=== PATIENT | male | born 1965 | race Two or more races ===

== ENCOUNTER 2017-05-08 14:30 | Outpatient (RCR) | payer OTHER, SELFPAY | END 2017-05-08 23:59 | LOC: PT 14:30 | PROVIDERS: Family Provider Nurse Practitioner Family; Visit Provider Nurse Practitioner Family | DX: M25.511 Pain in right shoulder (principal); M25.512 Pain in left shoulder; M25.552 Pain in left hip | CPT/HCPCS: 97110; 97162 ==

== ENCOUNTER 2017-05-24 13:00 | Outpatient (RCR) | payer OTHER, SELFPAY | END 2017-05-24 15:00 | disposition home or self-care (01) | LOC: OT 13:00 | PROVIDERS: Family Provider Nurse Practitioner Family; Visit Provider Nurse Practitioner Family | DX: M25.512 Pain in left shoulder (principal); M25.511 Pain in right shoulder; M25.551 Pain in right hip; M25.552 Pain in left hip | CPT/HCPCS: 97110; 97163; 97165 ==

== ENCOUNTER → 2018-12-10 07:53 | Outpatient (POV) | payer OTHER, SELFPAY | PROVIDERS: Visit Provider Specialist | DX: M25.541 Pain in joints of right hand (principal) | CPT/HCPCS: 95886; 95908 ==

== ENCOUNTER → 2019-03-04 08:42 | Outpatient (CLI) | payer OTHER, SELFPAY ==
--- NOTE | 2019-03-04 08:50 | MR_ITS ---
PROCEDURE: MR LUMBAR SPINE WO/W CON CLINICAL INDICATION: OTHER INTERVERTEBRAL DISC DEGENERATION, LUMBAR REGION Low back pain, right leg numbness COMPARISON: [facility] CT LUMBAR SPINE W/O CONTRAST from 02/24/2017 Lumbar spine from 12/05/2018 TECHNIQUE: Standard multiplanar multiecho sequences are performed without and with contrast. 3-D MIP and myelographic images are also rendered and reviewed FINDINGS: There is normal alignment. The spinal cord ends at the L1 level. T11-T12: Unremarkable. T12-L1: Unremarkable. L1-L2: Mild right-sided foraminal narrowing from facet hypertrophic change. L2-L3: Degenerate disc disease with bulging disc and endplate hypertrophic change slightly eccentric toward the right with right lateral recess and mild right foraminal narrowing L3-L4: Unremarkable. L4-5: Degenerative disc disease with bulging disc along with moderate to severe facet hypertrophic change. There is severe bilateral lateral recess narrowing moderate right foraminal narrowing and severe left foraminal narrowing. There is transverse narrowing of the canal L5-S1: Mild facet hypertrophic change. No enhancing lesions are evident. There are prominent osteophytes on the left at L1-L2 and L4-L5. IMPRESSION: 1. L1-L2: Mild right-sided foraminal narrowing from facet hypertrophic change. 2. L2-L3: Degenerate disc disease with bulging disc and endplate hypertrophic change eccentric toward the right with right lateral recess and mild right foraminal narrowing. 3. L4-5: Degenerative disc disease with bulging disc along with moderate to severe facet hypertrophic change. There is severe bilateral lateral recess narrowing moderate right foraminal narrowing and severe left foraminal narrowing. There is transverse narrowing of the canal. 4. No extruded herniated disc. No enhancing lesions. Dictated by: Freddie Joy MD 03/06/2019 07:11 Electronically signed by Freddie Joy MD in [facility] 03/06/2019 07:11
--- NOTE | 2019-03-04 10:56 | CT_ITS ---
PROCEDURE: CT ABDOMEN W CON CLINICAL HISTORY: LOW ABD PAIN Mid epigastric pain COMPARISON: No exams were available for comparison TECHNIQUE: 75 mL Optiray 350 Axial images obtained with sagittal and coronal reformats. All CT scans at the facility use one or more dose reduction, viz: automated exposure control, ma/kV adjustment per patient size (including targeted exams where dose is matched to indication, i.e. head), or iterative reconstruction technique. FINDINGS: The lung bases are clear. The liver, gallbladder, spleen, adrenal glands, pancreas, and kidneys have an unremarkable appearance. No intestinal obstruction or free air. The exam does not include the pelvis. The appendix is not visualized. There are degenerative changes of the lumbar spine. No evidence of aortic aneurysm. No adenopathy demonstrated IMPRESSION: No acute finding of the upper abdomen Dictated by: Freddie Joy MD 03/04/2019 16:49 Electronically signed by Freddie Joy MD in [facility] 03/04/2019 16:49
== END ==
PROVIDERS: PCP Nurse Practitioner; Visit Provider Nurse Practitioner
DX: R10.30 Lower abdominal pain, unspecified (principal); M51.36 Other intervertebral disc degeneration, lumbar region
CPT/HCPCS: 72158; 74160; 76376; A9576; Q9967

== ENCOUNTER → 2019-03-11 09:34 | Outpatient (POV) | payer OTHER, SELFPAY ==
[2019-03-11 10:07] VITALS: BP 131/89; PULSE 59; RESP 18; O2SAT 98; BMI 35.4
--- NOTE | 2019-03-12 08:45 | HMH.PMCON ---
Assessment and Plan (1) Degenerative joint disease (DJD) of lumbar spine Current visit: Yes Status: Chronic Category: Medical Code(s): M47.816 - Spondylosis without myelopathy or radiculopathy, lumbar region (2) Lumbar facet arthropathy Current visit: Yes Status: Chronic Category: Medical Code(s): M47.816 - Spondylosis without myelopathy or radiculopathy, lumbar region - Assessment and plan all Dx Assessment and Plan for all problems:: We will plan a medial branch block at L4-L5 L5-S1 bilaterally. I discussed with the patient through the proofer apprentice line that this is going to be a diagnostic test for potential RFA. He understands this. Patient will also be started on diclofenac 75 mg 1 p.o. twice daily. I will follow-up with the patient after his injection and reassess his symptoms at that time he has been instructed to call our office if he has any issues prior to his next appointment. Dr. Arteaga has reviewed this note and agrees with this plan of care. This note was dictated using voice recognition software and may contain errors or omissions HPI - Data of Consult Consult date: 03/11/19 Requesting Physician: Heaven Wall APRN Primary Care Provider: Kiki Flores APRN - Consult Narrative Reason for consult: Back pain History of present illness: Mr. Cates is a 53 year old male who presents today for consultation. Today's exam and discussion was all done through a voice interpretation language line provided by the hospital. Patient states that he has constant low back pain. Is not radiating in nature. Patient states that he had a twisting motion makes it worse. He states that it is constant. He does take Tylenol which is beneficial at times. Patient has tried diclofenac in the past which was helpful for him however he has not continued it. Patient has recent MRI showing facet arthropathy. Patient and I discussed injective therapy he is interested in moving forward with this. He is not on any anticoagulation therapy. Patient is continuing to do daily home stretching program. He rates his pain today a 6 out of 10. CC: Heaven Wall APRN [facility] History I have reviewed the patient's past medical history: Yes *Have you ever received a pneumonia vaccine?: No *Have you received a flu vaccine this season?: No - *Social History Smoking Status: Never smoker Alcohol Intake: former *Occupational Status:: other Housing: house Household Members: significant other *Travel in the last 8 weeks: None Family Hx:: Unable to obtain Review of Systems - Review of Systems ROS General: no recent weight change, no fever, no sleep disturbances Respiratory: no cough, no shortness of air, no recurring pulmonary infections Cardiovascular/Peripheral Vascular: No chest pain, No palpitations, no edema, no shortness of breath. Gastrointestinal: no new onset incontinence, normal bowel movements reported Genitourinary: no new onset incontinence Musculoskeletal: Back pain Psychiatric: normal mood/ affect, Neurological: [denies new onset weakness in extremities], [denies new onset balance issues] Meds Home Medications Medication Instructions Recorded Confirmed Type Ibuprofen [Ibuprofen 400mg 400 mg PO Q6HP PRN #20 tab 12/05/18 Rx Tablet] Tizanidine HCl [Zanaflex] 2 mg PO Q8HP PRN #15 cap 12/05/18 Rx Diclofenac Sodium [Diclofenac 75mg 75 mg PO BID #60 tab 03/11/19 Rx Tab] Allergies Allergy/AdvReac Type Severity Reaction Status Date / Time No Known Allergies Allergy Unverified 04/18/17 14:20 Objective Vital signs: Pulse Resp BP Pulse Ox 59 L 18 131/89 98 03/11/19 10:07 03/11/19 10:07 03/11/19 10:07 03/11/19 10:07 Narrative: Physical Exam General: Alert and oriented x3, no acute distress, pleasant and cooperative, [on room air] Lungs: Resps E/U, Symmetrical chest expansion, Eyes: PERRL Musculoskeletal: Flexion and exte
--- NOTE | 2019-03-12 08:48 | P.CONS_ITS ---
Assessment and Plan (1) Degenerative joint disease (DJD) of lumbar spine Current visit: Yes Status: Chronic Category: Medical Code(s): M47.816 - Spondylosis without myelopathy or radiculopathy, lumbar region (2) Lumbar facet arthropathy Current visit: Yes Status: Chronic Category: Medical Code(s): M47.816 - Spondylosis without myelopathy or radiculopathy, lumbar region - Assessment and plan all Dx Assessment and Plan for all problems:: We will plan a medial branch block at L4-L5 L5-S1 bilaterally. I discussed with the patient through the pressure tank operator line that this is going to be a diagnostic test for potential RFA. He understands this. Patient will also be started on diclofenac 75 mg 1 p.o. twice daily. I will follow-up with the patient after his injection and reassess his symptoms at that time he has been instructed to call our office if he has any issues prior to his next appointment. Dr. Arteaga has reviewed this note and agrees with this plan of care. This note was dictated using voice recognition software and may contain errors or omissions HPI - Data of Consult Consult date: 03/11/19 Requesting Physician: Heaven Wall APRN Primary Care Provider: Kiki Flores APRN - Consult Narrative Reason for consult: Back pain History of present illness: Mr. Cates is a 53 year old male who presents today for consultation. Today's exam and discussion was all done through a voice interpretation language line provided by the hospital. Patient states that he has constant low back pain. Is not radiating in nature. Patient states that he had a twisting motion makes it worse. He states that it is constant. He does take Tylenol which is beneficial at times. Patient has tried diclofenac in the past which was helpful for him however he has not continued it. Patient has recent MRI showing facet arthropathy. Patient and I discussed injective therapy he is interested in moving forward with this. He is not on any anticoagulation therapy. Patient is continuing to do daily home stretching program. He rates his pain today a 6 out of 10. CC: Heaven Wall APRN [facility] History I have reviewed the patient's past medical history: Yes *Have you ever received a pneumonia vaccine?: No *Have you received a flu vaccine this season?: No - *Social History Smoking Status: Never smoker Alcohol Intake: former *Occupational Status:: other Housing: house Household Members: significant other *Travel in the last 8 weeks: None Family Hx:: Unable to obtain Review of Systems - Review of Systems ROS General: no recent weight change, no fever, no sleep disturbances Respiratory: no cough, no shortness of air, no recurring pulmonary infections Cardiovascular/Peripheral Vascular: No chest pain, No palpitations, no edema, no shortness of breath. Gastrointestinal: no new onset incontinence, normal bowel movements reported Genitourinary: no new onset incontinence Musculoskeletal: Back pain Psychiatric: normal mood/ affect, Neurological: [denies new onset weakness in extremities], [denies new onset balance issues] Meds Home Medications Medication Instructions Recorded Confirmed Type Ibuprofen [Ibuprofen 400mg 400 mg PO Q6HP PRN #20 tab 12/05/18 Rx Tablet] Tizanidine HCl [Zanaflex] 2 mg PO Q8HP PRN #15 cap 12/05/18 Rx Diclofenac Sodium [Diclofenac 75mg 75 mg PO BID #60 tab 03/11/19 Rx Tab] All
== END ==
PROVIDERS: PCP Nurse Practitioner; Visit Provider Clinical Nurse Specialist Family Health
DX: M47.816 Spondylosis without myelopathy or radiculopathy, lumbar region (principal)
CPT/HCPCS: 99202

== ENCOUNTER → 2019-05-20 09:06 | Outpatient (POV) | payer SELFPAY ==
[2019-05-20 09:38] VITALS: BP 156/98; PULSE 74; RESP 18; O2SAT 99; BMI 36.4
--- NOTE | 2019-05-20 12:56 | P.CONS_ITS ---
[facility] Pain Management SOAP Note Subjective:: Patient is a 53-year-old male who presents today for follow-up after medial branch block. Patient and I are utilizing interpretive service for this visit. Patient had a medial branch block to which he states he got a few days of minimal relief. He rates his pain a 2 out of 10. Patient states he has low back pain with right leg pain. However he seems to be describing SI joint pain as well. Patient is on Tylenol and states that that is somewhat beneficial. Patient and I discussed adding gabapentin along with a epidural steroid injection. ROS General: no recent weight change, no fever, no sleep disturbances Respiratory: no cough, no shortness of air, no recurring pulmonary infections Cardiovascular/Peripheral Vascular: No chest pain, No palpitations, no edema, no shortness of breath. Gastrointestinal: no new onset incontinence, normal bowel movements reported Genitourinary: no new onset incontinence Musculoskeletal: Back pain, right leg pain Psychiatric: normal mood/ affect Neurological: [denies new onset weakness in extremities], [denies new onset balance issues] Objective:: Physical Exam General: Alert and oriented x3, no acute distress, pleasant and cooperative, [on room air] Lungs: Resps E/U, Symmetrical chest expansion, Eyes: PERRL Musculoskeletal: Flexion and extension of lumbar spine somewhat guarded secondary to pain, deep tendon reflexes normal, strength in upper and lower extremities [5/5], [abnormal gait noted] Neurological: speech clear, district director equal, no gross sensory deficits Assessment:: Degenerative disc disease lumbar spine with lumbar radiculopathy, facet arthropathy Plan:: We will start him on gabapentin 300 mg with history of PT. We will also set him up for an epidural steroid injection and I will follow-up with him after this reassess his symptoms at that time. Dr. Arteaga has reviewed this note and agrees with this plan of care. This note was dictated using voice recognition software and may contain errors or omissions [facility] History I have reviewed the patient's past medical history: Yes Medical History: Reports:: Hyperlipidemia, Hypertension Denies:: Diabetes Mellitus Type 1, Diabetes Mellitus Type 2 *Have you ever received a pneumonia vaccine?: Yes *Have you received a flu vaccine this season?: Yes - *Social History Smoking Status: Never smoker Alcohol Intake: never *Occupational Status:: other Housing: house Household Members: significant other *Travel in the last 8 weeks: None Family Hx:: Unable to obtain
== END ==
PROVIDERS: PCP Nurse Practitioner; Visit Provider Clinical Nurse Specialist Family Health
DX: M51.16 Intervertebral disc disorders with radiculopathy, lumbar region (principal); M54.06 Panniculitis affecting regions of neck and back, lumbar region; E78.5 Hyperlipidemia, unspecified; I10 Essential (primary) hypertension
CPT/HCPCS: 99212

== ENCOUNTER → 2020-06-04 08:29 | Outpatient (POV) | payer OTHER, SELFPAY ==
[2020-06-04 09:27] VITALS: BP 128/65; PULSE 64; RESP 18; TEMP 36.8; O2SAT 99; BMI 40.2
--- NOTE | 2020-06-04 09:27 | XR_ITS ---
PROCEDURE: XR HIP RT 2-3V W/PELVIS CLINICAL INDICATION: Right hip and low back pain COMPARISON: No exams were available for comparison FINDINGS: There is mild spurring along the lateral aspect of the acetabulum on both sides right greater than left with minimal osteoarthritic change the hips . No fracture or dislocation. No lytic or blastic change. IMPRESSION: Mild osteoarthritic change of the hips Dictated by: Freddie Joy MD 06/04/2020 13:16 Freddie Joy MD in [facility] 06/04/2020 13:16
--- NOTE | 2020-06-04 09:27 | XR_ITS ---
PROCEDURE: XR LUMBAR SPINE MIN 4V CLINICAL INDICATION: HIP /BACK PAIN COMPARISON: CR XR LUMBAR SPINE MIN 4V from 12/05/2018 FINDINGS: There are prominent bridging paravertebral osteophytes at from L1-L5 consistent with DISH. These are more prominent compared to 12/05/2018 especially on the right at L1-L2 and L3. There is normal alignment. No acute fracture or dislocation is evident. There is degenerative disc disease from L1-S1 and facet arthritic changes are present at L4-L5 and S1. There is mild sclerosis along the left SI joint superiorly. IMPRESSION: 1. Lumbar spondylosis with multilevel degenerative disc disease. 2. DISH of the lumbar spine which has progressed since the previous exam Dictated by: Freddie Joy MD 06/04/2020 13:14 Freddie Joy MD in [place] 06/04/2020 13:14
--- NOTE | 2020-06-04 12:28 | P.CONS_ITS ---
[facility] Pain Management SOAP Note Subjective:: Patient is a 54-year-old male who presents today for follow-up. Patient rates his pain a 7 out of 10. Patient was seen a year ago last May. He never followed up nor completed his injection regimen. Patient states that he is having more low back and right hip pain. He has no diagnostic imaging. He is not currently on any anti-inflammatory medication. Patient had tried gabapentin at some point however this was longer than a year ago. Patient states it did not help ROS General: no recent weight change, no fever, no sleep disturbances Respiratory: no cough, no shortness of air, no recurring pulmonary infections Cardiovascular/Peripheral Vascular: No chest pain, No palpitations, no edema, no shortness of breath. Gastrointestinal: no new onset incontinence, normal bowel movements reported Genitourinary: no new onset incontinence Musculoskeletal: Back pain, right hip pain Psychiatric: normal mood/ affect, Neurological: [denies new onset weakness in extremities], [denies new onset balance issues] Objective:: Physical Exam General: Alert and oriented x3, no acute distress, pleasant and cooperative, [on room air] Lungs: Resps E/U, Symmetrical chest expansion, Eyes: PERRL Musculoskeletal: Flexion and extension of lumbar spine somewhat guarded secondary to pain, deep tendon reflexes normal, strength in upper and lower extremities [5/5], [abnormal gait noted] Neurological: speech clear, database support equal, no gross sensory deficits Assessment:: Degenerative disc disease lumbar spine lumbar radiculopathy, right hip pain Plan:: We will send the patient for x-rays to determine pathology of pain. We will start him on Celebrex 200 mg 1 p.o. daily. I will follow-up with him in 1 month reassess his symptoms at that time due to insurance network issues at this time we can move forward with injective therapy. Patient's been instructed to call the office if he has any issues prior to his next appointment. Dr. Arteaga has reviewed this note and agrees with this plan of care. This note was dictated using voice recognition software and may contain errors or omissions [facility] History I have reviewed the patient's past medical history: Yes Medical History: Reports:: Hyperlipidemia, Hypertension Denies:: Diabetes Mellitus Type 1, Diabetes Mellitus Type 2 *Have you ever received a pneumonia vaccine?: No *Have you received a flu vaccine this season?: No - *Social History Smoking Status: Never smoker Alcohol Intake: never *Occupational Status:: other Housing: house Household Members: significant other *Travel in the last 8 weeks: None Family Hx:: Unable to obtain
== END ==
PROVIDERS: PCP Nurse Practitioner; Visit Provider Clinical Nurse Specialist Family Health
DX: M51.16 Intervertebral disc disorders with radiculopathy, lumbar region (principal); M25.551 Pain in right hip
CPT/HCPCS: 72110; 73502; 99212; G0463

== ENCOUNTER → 2020-07-02 08:29 | Outpatient (POV) | payer OTHER, SELFPAY ==
[2020-07-02 09:49] VITALS: BP 153/97; PULSE 70; RESP 18; O2SAT 98; BMI 32.9
--- NOTE | 2020-07-02 10:07 | P.CONS_ITS ---
[facility] Pain Management SOAP Note Subjective:: Patient is a 54-year-old male who presents today for follow-up and for medication refills. He has been treated for degenerative disc disease lumbar spine with lumbar radiculopathy symptoms and right hip pain. Patient rates his pain an 8 out of 10 today. He says he only got about 30 to 40% relief with the Celebrex. He has tried muscle relaxers and anti-inflammatories in the past with no relief. He wants to have injective therapy, however, he is not approved by his insurance at this time. We discussed other options such as physical therapy and home stretching. We also discussed possible compounding cream, however, he does not want this at this time. He would like to increase his dose of his Celebrex. Patient says once his insurance is approved per the clinic he would like to proceed with injective therapy. Patient's pain is worse with standing and walking him improves with sitting. Review of Systems General: No recent weight changes, no fever, no sleep disturbances Respiratory: No cough, no shortness of air, no recurring pulmonary infections Cardiovascular/peripheral vascular: No chest pain, no palpitations, no edema, no shortness of breath Gastrointestinal: No new onset incontinence, normal bowel movements reported Genitourinary: No new onset incontinence Musculoskeletal: Low back pain and right hip pain Psychiatric: Normal mood/affect Neurological: [Denies weakness in extremities], [denies balance issues] Objective:: Physical exam General: Alert and oriented x3, no acute distress, pleasant and cooperative, [on room air] Lungs: Respirations even and unlabored, symmetrical chest expansion Eyes: PERRL Musculoskeletal: Flexion and extension of lumbar spine somewhat guarded secondary to pain, deep tendon reflexes normal, strength in upper and lower extremities [5/5], [abnormal gait noted] Neurological: Speech clear, maint mechanic equal, no gross sensory deficit Assessment:: Degenerative disc disease lumbar spine with lumbar radiculopathy symptoms, right hip pain Plan:: We will increase the patient's Celebrex today to 200 g 1 tablet p.o. 2 times daily. We will see him back in a month and reevaluate his symptoms at that time. We cannot proceed with injective therapy until he is approved by his insurance. He has been instructed to contact clinic if he has any concerns for his next appointment. The patient and I specifically discussed risk factors for COVID19. These risks include, but are not limited to age greater than 60, heart or lung disease, diabetes, immunosuppression, and travel. We also discussed NSAIDs may worsen COVID19 infection or symptoms. Patient should not use NSAIDs to treat COVID19 signs or symptoms. Patient was also informed that any type of corticosteroid of any form (oral or injection) will decrease the patient's immune system response and may increase the likelihood of COVID19 infection and symptoms. [facility] History I have reviewed the patient's past medical history: Yes Medical History: Reports:: Hyperlipidemia, Hypertension Denies:: Diabetes Mellitus Type 1, Diabetes Mellitus Type 2 *Have you ever received a pneumonia vaccine?: Yes *Have you received a flu vaccine this season?: Yes - *Social History Smoking Status: Never smoker Alcohol Intake: never *Occupational Status:: other Housing: house Household Members: significant other *Travel in the last 8 weeks: None Family Hx:: Unable to obtain
== END ==
PROVIDERS: PCP Nurse Practitioner; Visit Provider Clinical Nurse Specialist Family Health
DX: M51.16 Intervertebral disc disorders with radiculopathy, lumbar region (principal); M25.551 Pain in right hip
CPT/HCPCS: 99212; G0463

== ENCOUNTER → 2020-08-06 09:29 | Outpatient (POV) | payer OTHER, SELFPAY ==
[2020-08-06 09:51] VITALS: BP 112/88; PULSE 74; RESP 18; O2SAT 98; BMI 36.2
--- NOTE | 2020-08-06 10:07 | HMH.PAINSOAP ---
[facility] Pain Management SOAP Note Subjective:: Patient is 54-year-old male who presents today for follow-up medication refills. Patient is being treated for degenerative disc disease lumbar spine lumbar radiculopathy. He rates his pain a 9 out of 10. Patient has been on Celebrex. Patient wants to discuss changing medications. We will start him on Mobic 15 mg a day. Patient has had injection therapy in the past and would like to continue with this. Patient's pain is in his back radiating down his legs. We discussed lumbar epidural steroid injection. We will move forward with this is not on any anticoagulation therapy. ROS General: no recent weight change, no fever, no sleep disturbances Respiratory: no cough, no shortness of air, no recurring pulmonary infections Cardiovascular/Peripheral Vascular: No chest pain, No palpitations, no edema, no shortness of breath. Gastrointestinal: no new onset incontinence, normal bowel movements reported Genitourinary: no new onset incontinence Musculoskeletal: Back pain, leg pain Psychiatric: normal mood/ affect Neurological: [denies new onset weakness in extremities], [denies new onset balance issues] Objective:: Physical Exam General: Alert and oriented x3, no acute distress, pleasant and cooperative, [on room air] Lungs: Resps E/U, Symmetrical chest expansion, Eyes: PERRL Musculoskeletal: Flexion and extension of lumbar spine somewhat guarded secondary to pain, deep tendon reflexes normal, strength in upper and lower extremities [5/5], [abnormal gait noted] Neurological: speech clear, can pusher equal, no gross sensory deficits Assessment:: Degenerative disc disease lumbar spine lumbar radiculopathy Plan:: We will start the patient on Mobic 15 mg daily. Patient will be set up for an L4-L5 lumbar epidural steroid injection I will follow-up with him afterwards reassess his symptoms at that time he has been instructed to call the office if he has any issues prior to his next appointment. Dr. Arteaga has reviewed this note and agrees with this plan of care. This note was dictated using voice recognition software and may contain errors or omissions [facility] History I have reviewed the patient's past medical history: Yes Medical History: Reports:: Hyperlipidemia, Hypertension Denies:: Diabetes Mellitus Type 1, Diabetes Mellitus Type 2 *Have you ever received a pneumonia vaccine?: Yes *Have you received a flu vaccine this season?: Yes - *Social History Smoking Status: Never smoker Alcohol Intake: never *Occupational Status:: employed Housing: house Household Members: significant other *Travel in the last 8 weeks: None Family Hx:: Unable to obtain
== END ==
PROVIDERS: Visit Provider Clinical Nurse Specialist Family Health
DX: M51.16 Intervertebral disc disorders with radiculopathy, lumbar region (principal)
CPT/HCPCS: 99212; G0463

== ENCOUNTER 2020-08-14 10:04 | Day surgery (SDC) | payer OTHER, SELFPAY ==
[2020-08-14 10:07] VITALS: BP 132/87; BP 169/103; PULSE 60; PULSE 84; RESP 18; TEMP 36; O2SAT 100; O2SAT 98; BMI 36.2
[2020-08-14 10:32] VITALS: BP 128/89; PULSE 78; RESP 18; O2SAT 98
[2020-08-14 10:43] VITALS: BP 166/85; PULSE 55; RESP 20; O2SAT 100
--- NOTE | 2020-08-14 10:52 | HMH.PMPROC ---
- Procedure Date: 08/14/20 Time: 10:52 Anesthesiologist:: Luis M Arteaga MD Complications:: None Pre-procedure Diagnosis:: Degenerative disc disease of lumbar spine with lumbar radiculopathy symptoms Post-procedure Diagnosis:: Same Indications for Procedure:: This patient is a pleasant 54-year-old male who we are treating for low back pain with lumbar radiculopathy symptoms. He has increasing pain in his back rating down his legs. Will do lumbar epidural steroid injection today to see if this helps him with his pain symptoms. Procedure Details:: Lumbar epidural steroid injection under fluoroscopy Informed consent was obtained and the risk and benefits of the procedure was explained to the patient. The patient was taken to the procedure room. The patient was placed prone on the procedure table. The patient was prepped and draped in sterile fashion. C-arm fluoroscopy was used to view the lumbar spine. Skin and subcutaneous tissues were anesthetized using lidocaine. I placed an 18-gauge epidural needle and advanced into the L4-L5 interspace using fluoroscopic guidance and [id number] to air. After confirmation of needle placement in the epidural space with dye I injected 2 mL of lidocaine 1.5% with Depo-Medrol 80 mg. Patient tolerated the procedure well with no complications. Plan and Disposition:: We will follow-up with him in 2 weeks. Will reevaluate symptoms at that time.
== END 2020-08-14 10:44 | disposition home or self-care (01) ==
LOC: SC.PAINP 10:05
PROVIDERS: PCP Nurse Practitioner; Visit Provider Anesthesiology
DX: M51.16 Intervertebral disc disorders with radiculopathy, lumbar region (principal); I10 Essential (primary) hypertension; E78.5 Hyperlipidemia, unspecified; K21.9 Gastro-esophageal reflux disease without esophagitis; F41.9 Anxiety disorder, unspecified; F32.9 Major depressive disorder, single episode, unspecified
CPT/HCPCS: 62323; J1040; Q9966

== ENCOUNTER → 2020-09-17 10:59 | Outpatient (POV) | payer OTHER, SELFPAY ==
[2020-09-17 11:14] VITALS: BP 138/85; PULSE 74; RESP 18; O2SAT 98; BMI 36.2
--- NOTE | 2020-09-17 11:42 | P.CONS_ITS ---
[facility] Pain Management SOAP Note Subjective:: Patient is a pleasant 54-year-old man who presents today for follow-up after lumbar epidural steroid injection. Patient did not get any relief from his injection therapy he rates his pain a 6 out of 10 mostly in his low back. Has not had any updated imaging. He is failed 6 weeks of anti-inflammatories. We discussed adding gabapentin to his regimen along with updating his MRI. He may need a neurosurgical consultation. ROS General: no recent weight change, no fever, no sleep disturbances Respiratory: no cough, no shortness of air, no recurring pulmonary infections Cardiovascular/Peripheral Vascular: No chest pain, No palpitations, no edema, no shortness of breath. Gastrointestinal: no new onset incontinence, normal bowel movements reported Genitourinary: no new onset incontinence Musculoskeletal: Back pain Psychiatric: normal mood/ affect Neurological: [denies new onset weakness in extremities], [denies new onset balance issues] Objective:: Physical Exam General: Alert and oriented x3, no acute distress, pleasant and cooperative, [on room air] Lungs: Resps E/U, Symmetrical chest expansion, Eyes: PERRL Musculoskeletal: Flexion and extension of lumbar spine somewhat guarded secondary to pain, deep tendon reflexes normal, strength in upper and lower extremities [5/5], [abnormal gait noted] Neurological: speech clear, 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 He may need a neurosurgical consultation we will give him gabapentin 100 mg 1 p.o. 3 times daily see if this is beneficial for him. He has been instructed to call the office if he has any issues prior to his next appointment. Dr. Arteaga has reviewed this note and agrees with this plan of care. This note was dictated using voice recognition software and may contain errors or omissions [facility] History I have reviewed the patient's past medical history: Yes Medical History: Reports:: Hyperlipidemia, Hypertension Denies:: Cancer, Diabetes Mellitus Type 1, Diabetes Mellitus Type 2, Internal Pacemaker, MRSA, Seizures *Have you ever received a pneumonia vaccine?: Yes *Have you received a flu vaccine this season?: Yes Other Medical History: Denies: Blood Transfusion Reaction Other Surgeries: Yes: No Previous Surgery. No: Pacemaker Amputation: No Fractures: No - *Social History Smoking Status: Never smoker Alcohol Intake: never *Occupational Status:: other Housing: house Household Members: significant other *Travel in the last 8 weeks: None Family Hx:: No significant family history
== END ==
PROVIDERS: Visit Provider Clinical Nurse Specialist Family Health
DX: M51.16 Intervertebral disc disorders with radiculopathy, lumbar region (principal)
CPT/HCPCS: 99212; G0463

== ENCOUNTER → 2020-09-19 07:20 | Outpatient (CLI) | payer OTHER, SELFPAY | PROVIDERS: Visit Provider Internal Medicine Gastroenterology | DX: Z01.812 Encounter for preprocedural laboratory examination (principal); Z11.52 Encounter for screening for COVID-19; Z13.810 Encounter for screening for upper gastrointestinal disorder; Z12.11 Encounter for screening for malignant neoplasm of colon | CPT/HCPCS: U0003 ==

== ENCOUNTER 2020-09-21 11:12 | Day surgery (SDC) | payer OTHER, SELFPAY ==
[2020-09-15 12:49] VITALS: BMI 35.5
[2020-09-21 12:52] VITALS: BP 134/58; PULSE 68; RESP 18; TEMP 36.6; O2SAT 99
--- NOTE | 2020-09-21 12:59 | P.PN_ITS ---
[facility] Anesthesia Checklist - Patient Identification Patient Identification: Arm Band - Structural Data Admitted From: Home Planned Operative Procedure/s: EGD/ Colonoscopy Consent for Planned Operative Procedure(s) Verified: Yes - NPO Status Verified Time NPO: 00:00 - Additional verifications Anesthesia Reactions: No Hx Blood Transfusions: No Blood Transfusion Reaction: No - Airway Assessment C-Spine Mobility Assessed: Yes TMJ Mobility Assessed: Yes Dentition: Good Dentition (Caps) - Neurological Assessment Level of Consciousness: Awake Hx Seizures: Yes Numbness or tingling in extremities: No - Anesthesia Plan Anesthesia Risk discussed: Yes Anesthesia Plan: Verified ASA Class: II Anesthesia Type: MAC [facility] History I have reviewed the patient's past medical history: Yes Medical History: Reports:: Hyperlipidemia, Hypertension, Seizures Denies:: Cancer, Diabetes Mellitus Type 1, Diabetes Mellitus Type 2, Internal Pacemaker, MRSA *Have you ever received a pneumonia vaccine?: Yes *Have you received a flu vaccine this season?: Yes Other Medical History: Reports: Other (Parkinson's). Denies: Blood Transfusion Reaction Anesthesia experience/problems:: None Other Surgeries: Yes: No Previous Surgery. No: Pacemaker Amputation: No Fractures: No - *Social History Last grade of school completed: High school graduate Smoking Status: Never smoker Alcohol Intake: never Substance Use Type: denies use *Occupational Status:: other Housing: house Household Members: significant other *Travel in the last 8 weeks: None Family Hx:: No significant family history
--- NOTE | 2020-09-21 13:09 | SUR.PREOP ---
Detention Deputy on IPad used during the check-in process.
[2020-09-21 13:40] VITALS: O2SAT 98
--- NOTE | 2020-09-21 13:43 | P.PCN_ITS ---
[facility] Procedure Note Procedure Note:: Upper Endoscopy Procedure Report: Esophagogastroduodenoscopy with cold biopsies Endoscopost: Sahil Mccullough II, MD Referring Physician: JAJA Vitale Date of Procedure: September 21, 2020 Equipment: Olympus GIF 190 standard upper endoscope Sedation: MAC sedation Indications: Mr. Cates is a 54-year-old gentleman with symptoms of dyspepsia which have worsened. He reports epigastric abdominal discomfort, bloating, belching, nausea and regurgitation. He does report significant postprandial bloating which may result in some shortness of breath. He reports no weight loss or melena. He does report chronic constipation/obstipation with incomplete defecation. This is his first EGD which is performed for diagnostic purposes. Procedure: Prior to the procedure, a history and physical exam was performed, and patient's medications and allergies were reviewed. The risks, benefits and alternatives of the sedation and procedure were discussed with the patient. All questions were answered and informed consent was obtained. The patient was brought to the procedure room. Patient identification and proposed procedure were verified by the physician and the nurse. The patient was placed in a left lateral decubitus position and the scope was passed under direct vision. Throughout the proc edure, the patient's blood pressure, pulse, and oxygen saturations were monitored continuously. The upper GI endoscopy was accomplished without difficulty. The patient tolerated the procedure well. Findings: The scope was passed directly into the upper esophagus and advanced to the third portion of the duodenum. The post bulbar duodenum and duodenal bulb were normal with normal mucosa and conniventes. The scope was withdrawn through a normal duodenal bulb and pylorus into the stomach. There was bile reflux with some linear reactive gastropathy of the antrum and mild chronic gastritis of the body and fundus of the stomach. Upon retroflexion there was no significant hiatal hernia. 2 biopsies were taken in the antrum and along the lesser curvature for histology to rule out gastritis and/or H pylori. The scope was then withdrawn into the esophagus. There was a serrated Z-line and evidence of nonerosive GERD. There was no evidence of reflux esophagitis, Jovel's or Schatzki's ring. There were some tertiary contractions and mild dysmotility. The remainder of the esophageal mucosa was normal. Impression: 1. Nonerosive GERD with mild esophageal dysmotility 2. Bile reflux with linear reactive gastropathy and mild chronic gastritis Plan: I will follow-up the biopsies to rule out H. pylori. 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 This is caused by his obstipation/incomplete defecation with colonic fermentation and gas formation. There is a gas pressure gradient driving the backflow and duodenal bile reflux. I will discussed dietary measures, fiber bowel regimen and treatment options. I will proceed with diagnostic colonoscopy.
--- NOTE | 2020-09-21 14:03 | P.PCN_ITS ---
[facility] Procedure Note Procedure Note:: Colonoscopy Procedure Report: Colonoscopy with cold snare polypectomy Endoscopist: Sahil Mccullough II, MD Referring physician: JAJA Vitale Date of Procedure: September 21, 2020 Equipment: Olympus 190 variable stiffness pediatric colonoscope Sedation: MAC sedation Indication: Mr. Cates is a 54-year-old gentleman with chronic constipation/obstipation, bloating and dyspepsia. This is his first colonoscopy. He reports no rectal bleeding, weight loss or family history of colon cancer. He does report incomplete defecation. Procedure: Prior to the procedure, a history and physical exam was performed, and patient's medications and allergies were reviewed. The risks, benefits and alternatives of the sedation and procedure were discussed with the patient. All questions were answered and informed consent was obtained. The patient was brought to the procedure room. Patient identification and proposed procedure were verified by the physician and the nurse. The patient was placed in a left lateral decubitus position and the scope was passed under direct vision. Throughout the procedu re, the patient's blood pressure, pulse, and oxygen saturations were monitored continuously. The colonoscopy was accomplished without difficulty. The patient tolerated the procedure well. Findings: On digital rectal examination there was normal rectal tone. There were no external hemorrhoids. The prostate was 2+, mildly firm but symmetric without nodules. The colonoscope was introduced through the anal canal to the rectum and advanced to the cecum. The ileocecal valve and appendiceal orifice were identified. The scope was advanced a short distance into the ileum which appeared grossly normal. The scope was then withdrawn into the colon. There were 2 colon polyps (cecum x1 (4 mm) and transverse x1 (4 mm)) which were both removed via cold snare polypectomy. There were scattered diverticuli throughout the colon. The remainder of the colonic mucosa was normal. The rectum itself was normal. Upon retroflexion within the rectum there were grade 2 internal hemorrhoids. The preparation was excellent throughout with [place] Preparation Score of 9. The cecal time was 12 minutes. Impression: 1. Colonic polyps x2 2. Pandiverticulosis 3. Grade 2 internal hemorrhoids Plan: I do feel that the patient has obstipation with incomplete bowel evacuation causing colonic fecal retention with excessive colonic bacterial overgrowth with fermentation/gas formation and dyspepsia. We will discuss dietary measures, fiber bowel regimen and treatment options. I will follow up the polyp histology. If the polyps are adenomatous, I would recommend repeat screening/surveillance colonoscopy again in 7 years.
[2020-09-21 14:05] VITALS: BP 117/79; PULSE 72; RESP 12; TEMP 36.2; O2SAT 92
[2020-09-21 14:15] VITALS: BP 117/78; PULSE 69; RESP 16; O2SAT 98
[2020-09-21 14:25] VITALS: BP 127/85; PULSE 70; RESP 16; O2SAT 98
[2020-09-21 14:35] VITALS: BP 148/81; PULSE 65; RESP 16; TEMP 36.2; O2SAT 98
== END 2020-09-21 14:59 | disposition home or self-care (01) ==
LOC: OUTP 11:13
PROVIDERS: PCP Nurse Practitioner; Visit Provider Internal Medicine Gastroenterology
PROC: 0DJ08ZZ Inspection of Upper Intestinal Tract, Via Natural or Artificial Opening Endoscopic (ICD-10-PCS; CPT 43235; principal; 2020-09-21 13:00)
DX: K63.5 Polyp of colon (principal); K57.30 Diverticulosis of large intestine without perforation or abscess without bleeding; K64.1 Second degree hemorrhoids; K21.9 Gastro-esophageal reflux disease without esophagitis; K22.4 Dyskinesia of esophagus; K31.9 Disease of stomach and duodenum, unspecified; K29.50 Unspecified chronic gastritis without bleeding; E78.5 Hyperlipidemia, unspecified; I10 Essential (primary) hypertension; R56.9 Unspecified convulsions; G20 Parkinson's disease; Z79.899 Other long term (current) drug therapy
CPT/HCPCS: 43239; 45385

== ENCOUNTER → 2020-09-25 13:47 | Outpatient (CLI) | payer OTHER, SELFPAY ==
--- NOTE | 2020-09-25 13:52 | MR_ITS ---
PROCEDURE INFORMATION: Exam: MR Lumbar Spine Without Contrast Exam date and time: 09/25/2020 1:52 PM Age: 54 years old Clinical indication: Low back pain and sciatica; Right; Patient HX: PT C/O chronic lbp and RT leg pain. PT denies injury or trauma and has no HX of lumbar surgery. Prior nr lumbar spine 03/14/2019; Additional info: Lbp with RT leg pain TECHNIQUE: Imaging protocol: Multiplanar magnetic resonance images of the lumbar spine without intravenous contrast. COMPARISON: MR LUMBAR SPINE WO/W CON 03/04/2019 9:35 AM FINDINGS: Vertebrae: Unremarkable. Spinal cord: Normal signal. No cord compression. There is loss of disc height and signal at the T11-T12 level without evidence of focal disc protrusion or extrusion. At the T12-L1 level is loss of disc height and signal with a mild diffuse disc bulge but no significant spinal or neural foraminal stenosis. Mild facet joint arthropathy. L1-L2: There is loss of disc height and signal with a mild disc bulge and moderate facet joint arthropathy articularly on the right. This causes mild to moderate right neural foraminal stenosis but no significant spinal or left neural foraminal stenosis is seen. . L2-L3: There is severe loss of disc height and signal with a mild diffuse disc bulge which extends into the neural foramen bilaterally.. In addition there is bilateral facet joint arthropathy and mild ligamentous hypertrophy combination of these changes causes mild to moderate left neural foraminal stenosis and moderate to severe right neural foraminal stenosis and minimal spinal stenosis. L3-L4: There is a minimal disc bulge seen in the left neural foramen with moderate bilateral facet joint arthropathy. Combination of these changes causes mild bilateral neural foraminal stenosis. L4-L5: There is loss of disc height and signal with a mild diffuse disc bulge. Bilateral severe facet joint arthropathy is seen with associated ligamentous hypertrophy. The combination of these changes causes severe bilateral neural foraminal stenosis and spinal stenosis. . L5-S1: There is loss of disc height and signal with a mild diffuse disc bulge and moderate bilateral facet joint arthropathy. Mild associated spinal and neural foraminal stenosis is seen. The left neural foramen is moderately stenosis secondary to a combination of a neural foraminal bulge and facet joint changes. . Soft tissues: Unremarkable. IMPRESSION: Multilevel degenerative changes as discussed above which are relatively stable when compared to the prior examination of 03/04/2019.
== END ==
PROVIDERS: PCP Nurse Practitioner; Visit Provider Clinical Nurse Specialist Family Health
DX: M54.5 Low back pain (principal)
CPT/HCPCS: 72148; 76376

== ENCOUNTER → 2020-10-01 13:08 | Outpatient (POV) | payer OTHER, SELFPAY ==
[2020-10-01 13:17] VITALS: BP 153/88; PULSE 69; RESP 18; O2SAT 99; BMI 36.6
--- NOTE | 2020-10-01 14:52 | HMH.PAINSOAP ---
[facility] Pain Management SOAP Note Subjective:: Patient is a 54-year-old male who presents today for follow-up after an MRI. He is accompanied by his girlfriend and an linen supervisor was used for the visit today. The patient has tried injective therapy with no significant relief. He did undergo an MRI that is consistent with his symptoms of spinal stenosis and neurogenic claudication type symptoms. He also has severe facet arthropathy according to the MRI report. Patient says his pain is worse when he is standing and walking. He also reports that leaning forward causes him to have worsening pain. The pain radiates into his bilateral hips and to his knees. He does not have any paresthesia to bilateral lower extremities, however. He rates his pain an 8 out of 10 today. Given the patient's symptomology and MRI report, we did discuss a neurosurgical referral. If he is not considered a surgical candidate, he would likely be a candidate for spinal cord stimulation versus intrathecal therapy. Review of Systems General: No recent weight changes, no fever, no sleep disturbances Respiratory: No cough, no shortness of air, no recurring pulmonary infections Cardiovascular/peripheral vascular: No chest pain, no palpitations, no edema, no shortness of breath Gastrointestinal: No new onset incontinence, normal bowel movements reported Genitourinary: No new onset incontinence Musculoskeletal: Low back pain, bilateral hip pain, bilateral knee pain Psychiatric: Normal mood/affect Neurological: [Denies weakness in extremities], [denies balance issues] Objective:: Physical exam General: Alert and oriented x3, no acute distress, pleasant and cooperative, [on room air] Lungs: Respirations even and unlabored, symmetrical chest expansion Eyes: PERRL Musculoskeletal: Flexion and extension of lumbar spine somewhat guarded secondary to pain, deep tendon reflexes normal, strength in upper and lower extremities [4/5], [abnormal gait noted] Neurological: Speech clear, 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 If he is not considered a surgical candidate, he would likely benefit from intrathecal therapy versus spinal cord stimulation. He has tried injective therapy with no relief. He is currently taking diclofenac with no relief. He has also tried physical therapy for greater than 6 weeks and continues with home stretching. We will see him back in the clinic after his neurosurgical consult to reevaluate his symptoms. He has been instructed to contact the clinic if he has any concerns before his next appointment. Patient has been instructed to contact the clinic with any concerns before the next appointment. Dr. Arteaga has reviewed this note and agrees with this plan of care. This note was dictated using voice recognition software and make contain errors or omissions. [facility] History I have reviewed the patient's past medical history: Yes Medical History: Reports:: Hyperlipidemia, Hypertension, Seizures Denies:: Cancer, Diabetes Mellitus Type 1, Diabetes Mellitus Type 2, Internal Pacemaker, MRSA *Have you ever received a pneumonia vaccine?: No *Have you received a flu vaccine this season?: No Other Medical History: Reports: Other (Parkinson's). Denies: Blood Transfusion Reaction Other Surgeries: Yes: No Previous Surgery. No: Pacemaker Amputation: No Fractures: No - *Social History Smoking Status: Never smoker Alcohol Intake: never Substance Use Type: denies use *Occupational Status:: unemployed Housing: house Household Members: significant other *Travel in the last 8 weeks: None Family Hx:: No significant family history
== END ==
PROVIDERS: Visit Provider Clinical Nurse Specialist Family Health
DX: M51.16 Intervertebral disc disorders with radiculopathy, lumbar region (principal); M48.062 Spinal stenosis, lumbar region with neurogenic claudication
CPT/HCPCS: 99212; G0463

== ENCOUNTER 2020-10-20 07:35 | Emergency (ER) | payer OTHER, SELFPAY ==
[2020-10-20 07:36] VITALS: BP 171/94; PULSE 68; RESP 16; TEMP 37; O2SAT 98; BMI 36.2
[2020-10-20 08:01] LABS: Microscopic, Urine URINE MICROSCOPIC (MICROSCOPIC)
--- NOTE | 2020-10-20 08:04 | CT_ITS ---
PROCEDURE: CT ABDOMEN PELVIS W CON CLINICAL INDICATION: ABD PAIN Severe abdominal pain periumbilical with constipation COMPARISON: CT CT ABDOMEN W CON from 03/04/2019 TECHNIQUE: IV Contrast: 75ML Isovue 370 Oral Contrast None Axial images obtained with sagittal and coronal reformats. All CT scans at the facility use one or more dose reduction, viz: automated exposure control, ma/kV adjustment per patient size (including targeted exams where dose is matched to indication, i.e. head), or iterative reconstruction technique. FINDINGS: LOWER THORAX: No acute finding ABDOMEN & PELVIS: Liver, gallbladder, spleen, adrenal glands, pancreas, and kidneys have an unremarkable appearance. No renal or ureteral calculi. No hydronephrosis. The gastric wall appears somewhat thickened but could be related to nondistention. No intestinal obstruction or free air. There is no significant colonic feces retention. No evidence of appendicitis. No evidence of diverticulitis. There is a tiny umbilical hernia containing fat. No abnormal fluid collections degenerative changes present in the lumbar spine. IMPRESSION: No definite acute finding. There is thickening of the gastric wall but could be related to nondistention. Please correlate with clinical parameters regarding possibility of gastritis. Dictated by: Freddie Joy MD 10/20/2020 09:05 Freddie Joy MD in [place] 10/20/2020 09:05
[2020-10-20 08:06] LABS: Appearance,Urine CLEAR (Clear); Bilirubin,Urine Negative (Negative); Blood, Urine Negative (Negative); Color,Urine YELLOW (Yellow); Glucose,Urine (UA) Negative (Negative); Ketones,Urine Negative (Negative); Leukocyte Esterase,Urine Negative (Negative); Nitrate,Urine Negative (Negative); Protein,Urine Negative (Negative); Urobilinogen,Urine 0.2 EU/dl (0.2)
[2020-10-20 08:10] LABS: Basophils % 0.4 % (0.1-2.0); Eosinophils # 0.1 K/mm3 (0.0-0.4); Eosinophils % 1.5 % (0.1-12.0); Hematocrit 45.9 % (42.0-52.0); Hemoglobin 15.5 g/dL (14.1-18.0); Lymphocytes # 1.9 K/mm3 (0.7-4.5); Lymphocytes % 30.5 % (10-50); Mean Corpuscular HGB Conc 33.8 g/dL (31.8-35.4); Mean Corpuscular Hemoglobin 29.8 pg (27.0-31.2); Mean Corpuscular Volume 88.2 fl (80-94); Mean Platelet Volume 7.3 fl (7.4-10.4); Monocytes # 0.5 K/mm3 (0.1-1.0); Monocytes % 8.5 % (1.7-9.3); Neutrophils # 3.7 K/mm3 (1.8-7.8); Platelet Count 297 K/mm3 (142-424); Red Blood Count 5.21 M/mm3 (4.60-6.20); Red Cell Distribution Width 13.9 % (11.5-17.5); White Blood Count 6.2 K/mm3 (4.8-10.8)
[2020-10-20 08:13] LABS: Chloride 104 mmol/L (98-107); Potassium 4.4 mmoL/L (3.5-5.1); Sodium 142 mmol/L (136-145)
[2020-10-20 08:15] LABS: Amylase 60 U/L (30-110)
[2020-10-20 08:16] LABS: Alanine Aminotransferase 18 U/L (12-78); Albumin/Globulin Ratio 1.5 (1.1-1.8); Alkaline Phosphatase 89 U/L (38-126); Anion Gap 12.4 mEq/L (5-15); Aspartate Amino Transferase 23 U/L (17-59); Bilirubin,Total 0.7 mg/dl (0.2-1.3); Blood Urea Nitrogen 21 mg/dl (9-20); Calcium 9.8 mg/dl (8.4-10.2); Carbon Dioxide 30 mmol/L (22.0-30.0); Creatinine Clearance Estimated 84 mL/min (50-200); Estimated Glomerular Filt Rate 53 ml/min (>60); GFR (African American) 64 ML/MIN (>60); Globulin 3.3 g/dL (1.3-3.2); Glucose 92 mg/dl (74-100); Lipase 144 U/L (23-300); Total Protein,Serum 8.3 g/dl (6.3-8.2)
[2020-10-20 08:21] LABS: Bacteria,Urine Trace /lpf; Squamous Epithelial Cell,Urine Occasional #/hpf (0-5); WBC,Urine Occasional #/hpf (0-3)
--- NOTE | 2020-10-20 08:28 | HMH.EDGENADL ---
ED Disposition Clinical Impression: Abdominal bloating Abdominal pain Qualifiers: Abdominal location: upper abdomen, unspecified Qualified Code(s): R10.10 - Upper abdominal pain, unspecified Disposition: Home, Self-Care Condition on Discharge: Good Instructions: DI for Acute Abdominal Pain Additional Instructions: Reglan as prescribed. Follow-up with your primary care provider to schedule an outpatient gallbladder ultrasound. Additional instructions for ABDOMINAL PAIN: See your physician as soon as possible for further evaluation. Return immediately if worsening abdominal pain, vomiting, shortness of breath, fever, vomiting of blood or abdominal distention. Prescriptions: Metoclopramide HCl [Reglan 5mg Tablet] 5 mg PO TIDP PRN #10 tab PRN Reason: Nausea And Vomiting Transmission Status: Pending to [facility] Referrals: Kiki Flores APRN [Primary Care Provider] - - Critical Care Critical Care Time: No Attestation: On 10/20/20, the high probability of a clinically significant, sudden or life threatening deterioration of the following system(s) required my full and direct attention, intervention and personal management. The time I documented below is in addition to time spent performing reported procedures but includes the following listed in this critical care notation. Medical Decision Making - Medical Records Medical records reviewed: Yes: I reviewed the patient's medical records. MR Comment: Reviewed report of CT scan of abdomen on 03/04/2019 which showed no acute process. Reviewed reports of upper and lower endoscopies by Dr. Mccullough 09/21/2020. - Umberto Inquiry Pt receiving controlled substance: No Vital Signs: 10/20/20 07:36 10/20/20 08:49 Temperature 98.6 F Temperature Source Oral Pulse Rate 54 L Pulse Rate [Radial] 68 Respiratory Rate 16 20 Blood Pressure 135/89 Blood Pressure [Right Arm] 171/94 H Blood Pressure Mean 100 Blood Pressure Mean [Right Arm] 119 Blood Pressure Position [Right Arm] Sitting 02 Sat by Pulse Oximetry 98 100 Oxygen Delivery Method Room Air - Lab Data Lab Results 10/20/20 07:40: Urine Color Yellow, Urine Appearance Clear, Urine pH 6.0, Ur Specific [place] 1.010, Urine Protein Negative, Urine Glucose (UA) Negative, Urine Ketones Negative, Urine Blood Negative, Urine Nitrate Negative, Urine Bilirubin Negative, Urine Urobilinogen 0.2, Ur Leukocyte Esterase Negative, Urine RBC None, Urine WBC Occasional, Ur Squamous Epith Cells Occasional, Urine Bacteria Trace 10/20/20 07:58: WBC 6.2, RBC 5.21, Hgb 15.5, Hct 45.9, MCV 88.2, MCH 29.8, MCHC 33.8, RDW 13.9, Plt Count 297, MPV 7.3 L, Neut % (Auto) 59.0, Lymph % (Auto) 30.5, [place] % (Auto) 8.5, Eos % (Auto) 1.5, Baso % (Auto) 0.4, Neut # (Auto) 3.7, Lymph # (Auto) 1.9, [place] # (Auto) 0.5, Eos # (Auto) 0.1, Baso # (Auto) 0.0 10/20/20 07:58: Sodium 142, Potassium 4.4, Chloride 104, Carbon Dioxide 30, Anion Gap 12.4, BUN 21 H, Creatinine 1.40 H, Estimated Creat Clear 84, Estimated GFR 53 L, Est GFR ( Amer) 64, Glucose 92, Calcium 9.8, Total Bilirubin 0.7, AST 23, ALT 18, Alkaline Phosphatase 89, Total Protein 8.3 H, Albumin 5.0, Globulin 3.3 H, Albumin/Globulin Ratio 1.5, Amylase 60, Lipase 144 Result diagrams: 10/20/20 07:58 10/20/20 07:58 Orders (Tests/Meds): ED MEDICATIONS Generic Name Dose Route Start Last Admin Trade Name Freq PRN Reason Stop Dose Admin Sodium Chloride 8 ml 10/20/20 08:27 10/20/20 08:40 Sodium Chloride 0.9% 10ml Vial IV 11/19/20 08:26 8 ml NEEDED PRN Administration dilute pepcid Discontinued Medications Generic Name Dose Route Start Last Admin Trade Name Freq PRN Reason Stop Dose Admin Famotidine 20 mg 10/20/20 08:27 10/20/20 08:39 Famotidine 20mg/2ml Vial IV 10/20/20 08:28 20 mg ONCE ONE Administration Iopamidol 75 ml 10/20/20 08:44 10/20/20 08:45 Iopamidol-370 (76%);100ml Bottle IV 10/20/20 08:45 75 ml ON
[2020-10-20 08:49] VITALS: BP 135/89; PULSE 54; RESP 20; O2SAT 100
[2020-10-20 09:01] VITALS: BP 151/78; PULSE 58; O2SAT 100
[2020-10-20 09:31] VITALS: BP 166/87; PULSE 57; O2SAT 100
[2020-10-20 09:52] VITALS: BP 165/74; PULSE 57; RESP 16; TEMP 36.6; O2SAT 98
== END 2020-10-20 09:53 | disposition home or self-care (01) ==
PROVIDERS: Emergency Medicine; Emergency Provider Emergency Medicine; PCP Nurse Practitioner
DX: R10.11 Right upper quadrant pain (principal); K59.00 Constipation, unspecified; I10 Essential (primary) hypertension; E78.5 Hyperlipidemia, unspecified; Z79.899 Other long term (current) drug therapy
CPT/HCPCS: 74177; 80053; 81001; 82150; 83690; 85025; 96365; 96375; 99283; J2405; Q9967

== ENCOUNTER 2022-08-25 09:45 | Emergency (ER) | payer OTHER, SELFPAY ==
--- NOTE | 2022-08-25 09:55 | PC.NURSE ---
Asked pt and pts visitor if they would like to have an plastics spreading machine operator and pt responded yes. Veneer Jointer Returner IPAD at [facility]
[2022-08-25 10:00] VITALS: BP 157/99; PULSE 62; O2SAT 100
--- NOTE | 2022-08-25 10:12 | XR_ITS ---
FINAL REPORT CLINICAL HISTORY: Shortness of breath COMPARISON: 02/24/2017 FINDINGS: A single portable view of the chest was obtained. The heart size and pulmonary vascularity are within normal limits. The mediastinum is within normal limits. No acute pulmonary abnormality is identified. The bony thorax is intact. IMPRESSION: No active cardiopulmonary disease. Reviewed, Interpreted and Dictated by Alek Acosta III, MD Transcribed by Anuja Lee Authenticated and . [facility]
--- NOTE | 2022-08-25 10:12 | HMH.EDGENADL ---
Discharge Plan Disposition Patient Disposition: Home, Self-Care Prescriptions Prescriptions: New ibuprofen 800 mg tablet 800 mg PO TID PRN (Reason: pain) 7 Days Qty: 20 0RF cyclobenzaprine 5 mg tablet 5 mg PO TID PRN (Reason: muscle spasm) 5 Days Qty: 15 0RF No Action ergocalciferol (vitamin D2) [Vitamin D2] 1,250 mcg (50,000 unit) capsule 50,000 unit PO WEEKLY omeprazole 20 MG capsule,delayed release(DR/EC) 20 mg PO DAILY Label Comments: TAKE ONE CAPSULE BY MOUTH EVERY DAY carbidopa-levodopa 1 EACH tablet 1 tab PO DAILY Label Comments: TAKE TWO TABLETS BY MOUTH FOUR TIMES DAILY fenofibrate 160 MG tablet 160 mg PO DAILY Referrals Follow up/Referrals: Kiki Flores APRN [Primary Care Provider] - See instructions Activity Restrictions/Add. Instructions Additional Instructions/Restrictions: With any new or different symptoms including anterior or front of the chest wall pain specifically anything that is exertional in nature or any shortness of breath any blood in the urine or any other concerns. Otherwise we will treat this supportively as if it is a musculoskeletal strain which should be self-limiting. Clinical Impressions Clinical Impression: Chest wall muscle strain Instructions Patient Instructions: DI for Acute Abdominal Pain Discharge ED Provider: Gracie Coleman General Adult HPI General Chief complaint: Abdominal Pain Stated complaint: LT lung pain Time Seen by Provider: 08/25/22 10:12 History of Present Illness HPI narrative: 56-year-old male presenting today with history obtained from friend in the room as well as motor vehicle parts interpreter. Remote Sensing Advisor we had connectivity issues and there is significant difficulty from a technical standpoint and history is thus limited. Patient states that he developed some left chest and left upper quadrant abdominal pain after carrying some trash. No anterior chest wall discomfort or exertional symptoms. No dyspnea no pleuritic component to this. No fevers chills or cough. Denies any changes in bowel habits or urinating abnormalities including hematuria. Related Data Home Medications Medication Instructions Recorded Confirmed carbidopa 25 mg-levodopa 100 mg 1 tab PO DAILY PARKINSONS 04/19/19 08/25/22 tablet omeprazole 20 mg capsule,delayed 20 mg PO DAILY Indigestion 04/19/19 08/25/22 release fenofibrate 160 mg tablet 160 mg PO DAILY Cholesterol 09/21/20 08/25/22 ergocalciferol (vitamin D2) 1,250 50,000 unit PO WEEKLY vitmain d 08/25/22 08/25/22 mcg (50,000 unit) capsule (Vitamin deficnet D2) Previous Rx's Medication Instructions Recorded cyclobenzaprine 5 mg tablet 5 mg PO TID PRN muscle spasm 5 08/25/22 days #15 tabs ibuprofen 800 mg tablet 800 mg PO TID PRN pain 7 days #20 08/25/22 tabs Allergies Allergy/AdvReac Type Severity Reaction Status Date / Time No Known Allergies Allergy Verified 08/25/22 11:00 [facility] Disclaimer: The information contained in this section may have been updated after the patient was seen, as this information can be updated by other users. Medical History (Updated 08/25/22 @ 11:53 by Gracie Coleman MD) GERD (gastroesophageal reflux disease) Hyperlipemia Parkinson disease Vitamin D deficiency Surgical History (Updated 08/25/22 @ 10:57 by Angela Barker RN) No significant past surgical history Family History (Updated 08/25/22 @ 10:57 by Angela Barker RN) Other No significant family history Social History (Updated 08/25/22 @ 10:57 by Angela Barker RN) Smoking Status: Never smoker second hand exposure: No alcohol intake: never substance use type: denies use current occupational status: unemployed Travel in the last 8 weeks: None household members: significant other housing: house 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
[2022-08-25 10:14] VITALS: BP 157/99; PULSE 60; RESP 20; TEMP 36.7; O2SAT 100; BMI 36.6
--- NOTE | 2022-08-25 10:18 | ECG_ITS ---
APPROVED REPORT Exam: Resting ECG HR:56 bpm ECG Measurements Heart Rate 56 AXES GA 160 P 44 QRSd 85 QRS 10 QT 395 T 29 QTc 386 Conclusion SINUS BRADYCARDIA NONSPECIFIC T-WAVE ABNORMALITY BORDERLINE ECG UNCONFIRMED REPORT Electronically signed by : Delmer Goodson MD 08/25/2022 21:13:37
--- NOTE | 2022-08-25 10:28 | PC.NURSE ---
Radiology at BS for portable chest XR
--- NOTE | 2022-08-25 10:28 | PC.NURSE ---
XR at bedside.
[2022-08-25 10:35] VITALS: BP 162/93; PULSE 61; O2SAT 100
[2022-08-25 10:40] LABS: Microscopic, Urine URINE MICROSCOPIC (MICROSCOPIC)
[2022-08-25 10:40] LABS: Basophils % 0.4 % (0.1-2.0); Eosinophils # 0.1 K/mm3 (0.0-0.4); Eosinophils % 1.7 % (0.1-12.0); Hematocrit 48.3 % (42.0-52.0); Hemoglobin 15.5 g/dL (14.1-18.0); Lymphocytes # 1.6 K/mm3 (0.7-4.5); Lymphocytes % 31.9 % (10-50); Mean Corpuscular HGB Conc 32.1 g/dL (31.8-35.4); Mean Corpuscular Hemoglobin 29.9 pg (27.0-31.2); Monocytes # 0.4 K/mm3 (0.1-1.0); Monocytes % 7.5 % (1.7-9.3); Neutrophils # 2.9 K/mm3 (1.8-7.8); Neutrophils % 58.6 % (37.0-80.0); Platelet Count 244 K/mm3 (142-424); Red Cell Distribution Width 13.4 % (11.5-17.5)
[2022-08-25 11:10] LABS: Alanine Aminotransferase 15 U/L (12-78); Albumin Level 4.8 g/dl (3.5-5.0); Albumin/Globulin Ratio 1.7 (1.1-1.8); Alkaline Phosphatase 71 U/L (38-126); Aspartate Amino Transferase 28 U/L (17-59); Bilirubin,Total 0.8 mg/dl (0.2-1.3); Blood Urea Nitrogen 16 mg/dl (9-20); Calcium 9.1 mg/dl (8.4-10.2); Carbon Dioxide 30 mmol/L (22.0-30.0); Chloride 104 mmol/L (98-107); Creatinine Clearance Estimated 107 mL/min (50-200); Estimated Glomerular Filt Rate 69 ml/min (>60); GFR (African American) 84 ML/MIN (>60); Globulin 2.9 g/dL (1.3-3.2); Glucose 98 mg/dl (74-100); Lipase 84 U/L (23-300); Sodium 142 mmol/L (136-145); Total Protein,Serum 7.7 g/dl (6.3-8.2)
[2022-08-25 11:24] LABS: Troponin I < 0.01 ng/ml (0.00-0.034)
--- NOTE | 2022-08-25 11:51 | PC.NURSE ---
DR SONG AT BEDSIDE
[2022-08-25 11:59] VITALS: BP 146/89; PULSE 56; RESP 18; TEMP 36.7; O2SAT 100
[2022-08-25 12:09] LABS: Appearance,Urine CLEAR (Clear); Bilirubin,Urine Negative (Negative); Blood, Urine Negative (Negative); Color,Urine YELLOW (Yellow); Glucose,Urine (UA) Negative (Negative); Ketones,Urine Negative (Negative); Leukocyte Esterase,Urine Negative (Negative); Nitrate,Urine Negative (Negative); Protein,Urine Negative (Negative); Specific Gravity, Urine 1.015 (1.005-1.030); Urobilinogen,Urine 0.2 EU/dl (0.2)
[2022-08-25 12:47] LABS: Squamous Epithelial Cell,Urine Occasional #/hpf (0-5); WBC,Urine Occasional #/hpf (0-3)
== END 2022-08-25 12:00 | disposition home or self-care (01) ==
PROVIDERS: Emergency Provider Student in an Organized Health Care Education/Training Program; PCP Nurse Practitioner
DX: S29.011A Strain of muscle and tendon of front wall of thorax, initial encounter (principal); R10.12 Left upper quadrant pain; X50.0XXA Overexertion from strenuous movement or load, initial encounter
CPT/HCPCS: 71045; 80053; 81001; 83690; 84484; 85025; 93005; 96361; 96374; 99284; 99285

== ENCOUNTER 2023-05-03 14:16 | Emergency (ER) | payer OTHER, SELFPAY ==
[2023-05-03 14:17] VITALS: BP 134/82; PULSE 67; RESP 20; TEMP 36.6; O2SAT 98; BMI 37.1
--- NOTE | 2023-05-03 15:17 | HMH.EDGENADL ---
Discharge Plan Disposition Patient Disposition: Home, Self-Care Prescriptions Prescriptions: New gabapentin 300 mg capsule 300 mg PO TID 7 Days Qty: 21 0RF No Action ergocalciferol (vitamin D2) [Vitamin D2] 1,250 mcg (50,000 unit) capsule 50,000 unit PO WEEKLY ibuprofen 800 mg tablet 800 mg PO TID PRN (Reason: pain) 7 Days Qty: 20 0RF cyclobenzaprine 5 mg tablet 5 mg PO TID PRN (Reason: muscle spasm) 5 Days Qty: 15 0RF omeprazole 20 MG capsule,delayed release(DR/EC) 20 mg PO DAILY Patient Comments: TAKE ONE CAPSULE BY MOUTH EVERY DAY carbidopa-levodopa 1 EACH tablet 1 tab PO DAILY Patient Comments: TAKE TWO TABLETS BY MOUTH FOUR TIMES DAILY fenofibrate 160 MG tablet 160 mg PO DAILY Referrals Follow up/Referrals: Kiki Flores APRN [Primary Care Provider] - See instructions Activity Restrictions/Add. Instructions Additional Instructions/Restrictions: Your symptoms today are consistent with possible cervical radiculopathy not concerning for a neurovascular emergency. His exam was objectively normal. Please return to the emergency department with significant motor weakness. Otherwise I would recommend you follow-up with your primary care doctor and or your neurologist to discuss further the need for a cervical spine MRI and further differentiation of the symptoms that you are experiencing is the slowness in your hands are likely associated with your known movement disorder, Parkinson's disease however your pain that is radiating from your neck and your hands could certainly be a herniated disc. No evidence from historical or physical exam standpoint for critical spinal stenosis or nerve impingement that would require neurosurgical intervention. Clinical Impressions Clinical Impression: Cervical radiculopathy Instructions Patient Instructions: DI for Low Back Pain Discharge ED Provider: Bala Hansen General Adult [facility] General Chief complaint: Back Pain/Injury Stated complaint: back pain and causing hands numb Time Seen by Provider: 05/03/23 14:21 Mode of Arrival: Ambulatory Source of Information: Patient and Significant Other Limitations: No Limitations Description of Symptoms (Recalled from ER Triage Doc. by RN): pt has had low back pain for the last 6-7 years, yesterday it got worse as well as both his hands are weak and drawing up with loss of cuffer that started yesterday at noon. pt has a diagnosis of parkinson's in which he has seen at for but has failed to follow up with him in over a year due to insurance issues. pt also hx of arthritis and DDD and has seen in the office a few years ago but due to insurnace issues did not follow up and has an appt with on 05/10/23 History of Present Illness HPI narrative: Patient is a 57-year-old male who is a history of Parkinson's disease and also chronic back pain that is been ongoing for many years with an MRI proven herniated disc 4 years ago in his lower thoracic and lumbar spine according to his significant other who is in the room. She states that over the last several days he has had worsening pain in his neck radiating into his hands and at times he feels as if his hands are slow. No motor strength loss no sensory changes no other focal neurologic deficits states that his hand slowness improves with Tylenol therefore he believes it secondary to pain. Denies any lower extremity or bowel or urine related symptoms. Related Data Home Medications Medication Instructions Recorded Confirmed carbidopa 25 mg-levodopa 100 mg 1 tab PO DAILY PARKINSONS 04/19/19 08/25/22 tablet omeprazole 20 mg capsule,delayed 20 mg PO DAILY Indigestion 04/19/19 08/25/22 release fenofibrate 160 mg tablet 160 mg PO DAILY Cholesterol 09/21/20 08/25/22 ergocalciferol (vitamin D2) 1,250 50,000 unit PO WEEKLY vitmain d 08/25/22 08/25/22 mcg (50,000 unit) capsule (Vitamin deficnet D2) Previous Rx's Medication Instructions Recorded cyclobenzaprine 5 mg tablet 5 mg PO TID PRN muscle spasm 5 08/25/22 days #15 tabs ibuprofen 800 mg tablet 800 mg PO TID PRN pain 7 days #20 08/25/22 tabs gabapentin 300 mg capsule 300 mg PO TID 7 days #21 caps 05/03/23 Allergies Allergy/AdvReac Type Severity Reaction Status Date / Time No Known Allergies Allergy Verified 08/25/22 11:00 [facility] Disclaimer: The information contained in this section may have been updated after the patient was seen, as this information can be updated by other users. Medical History (Updated 05/03/23 @ 15:17 by Gracie Coleman MD) GERD (gastroesophageal reflux disease) Hyperlipemia Parkinson disease Vitamin D deficiency Surgical History (Updated 08/25/22 @ 10:57 by Angela Barker RN) No significant past surgical history Family History (Updated 08/25/22 @ 10:57 by Angela Barker RN) Other No significant family history Social History (Updated 08/25/22 @ 10:57 by Angela Barker RN) Smoking Status: Unknown if ever smoked second hand exposure: No alcohol intake: never substance use type: denies use current occupational status: unemployed Travel in the last 8 weeks: None household members: significant other housing: house 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viewed & no additional complaints except as documented Physical Exam General General appearance: alert Respiratory Respiratory exam: Present normal lung sounds bilaterally Cardiovascular Cardiovascular exam: Present regular rate; Absent tachycardia Neurological Exam Neurological exam: Present alert, oriented X3, CN II-XII intact and normal gait; Absent motor sensory deficit (Specifically normal median ulnar radial and axillary nerve motor and sensory function bilateral upper extremities) Medical Decision Making Umberto Inquiry Pt receiving controlled substance: No Vital Signs: 05/03/23 14:17 05/03/23 15:28 Temperature 97.8 F 98.0 F Temperature Source Oral Pulse Rate 64 Pulse Rate [Right Radial] 67 Respiratory Rate 20 16 Blood Pressure 145/87 H Blood Pressure [Right Arm] 134/82 Blood Pressure Mean [Right Arm] 99 02 Sat by Pulse Oximetry 98 Oxygen Delivery Method Room Air Room Air Medical Decision Narrative: Patient is a 57-year-old with chronic pain here with an objectively normal neurologic exam bilateral upper extremities but complains of hand slowness . I suspect this is most likely secondary to his known neuromuscular disorder, Parkinson's. However could be cervical radiculopathy which is my working diagnosis at the moment. Will prescribe gabapentin for pain control has been advised also to take Tylenol and meloxicam which he is already taking in addition to the gabapentin. I also advised that he follow-up with his primary care doctor or his neurologist to get a cervical spine MRI to further differentiate this. With a history of degenerative disc disease and known herniated disc in his lower spine possibly also has cervical spine disease which is now working diagnosis at the moment. With a normal neurologic exam no indication for any emergent imaging at the moment which I explained to him and his family. He was discharged in improved and stable condition with advised for close outpatient follow-up as stated above. Critical Care Critical Care Time Critical Care Time: No
[2023-05-03 15:28] VITALS: BP 145/87; PULSE 64; RESP 16; TEMP 36.7; O2SAT 98
== END 2023-05-03 15:31 | disposition home or self-care (01) ==
PROVIDERS: Emergency Provider Emergency Medicine; PCP Nurse Practitioner
DX: M54.12 Radiculopathy, cervical region (principal); M54.50 Low back pain, unspecified; G20.C Parkinsonism, unspecified; E78.5 Hyperlipidemia, unspecified
CPT/HCPCS: 99283

== ENCOUNTER → 2023-05-11 09:28 | Outpatient (POV) | payer OTHER, SELFPAY ==
--- NOTE | 2023-05-11 10:07 | A.OFFVIS_ITS ---
HPI Data of Consult Patient: known to practice within the last 3 years Consult date: 05/11/23 Requesting Physician: Gertrudis Manzo APRN Primary Care Provider: Kiki Flores APRN Consult Narrative History of present illness: Mr. Cates is a 57 year old male who presents today as a new patient. He is a referral from Kiki Flores's office. Today he rates his pain a 10 out of 10. Patient states he has pain throughout his low back as well as his shoulders and running down into his arms with numbness weakness and occasional headaches. Patient states this has been going on for at least 6 to 7 years and worsened over time. Patient was previously a patient from our office and did get injections in the past that would help however states sometimes they were only lasting a month or so. Patient does state the pain interferes with his sleeping and activities of daily living such as cooking and cleaning. He does state that certain movements make his pain worse such as bending, twisting or lifting. Patient does state his back pain is an aching, throbbing sensation that is worse with increased activity. Patient has tried [id number] Tylenol along with meloxicam, heat and ice and topicals with minimal improvement. Patient has had physical therapy in the past however made no change. Patient does state that his low back pain is more bothersome than his upper body pain. He is interested in any help we may be able to provide. Patient is currently prescribed gabapentin 300 mg 3 times a day from an outside provider. His Umberto has been reviewed and is appropriate. Patient is Cam[place]onian-speaking and today's communication was done through the [facility] marine steward line via iPad. CC: Gertrudis Manzo APRN [facility] Disclaimer: The information contained in this section may have been updated after the patient was seen, as this information can be updated by other users. Medical History (Updated 05/11/23 @ 10:08 by Gertrudis Manzo APRN) GERD (gastroesophageal reflux disease) Hyperlipemia Parkinson disease Vitamin D deficiency Surgical History (Updated 08/25/22 @ 10:57 by Angela Barker RN) No significant past surgical history Family History (Updated 08/25/22 @ 10:57 by Angela Barker RN) Other No significant family history Social History (Updated 08/25/22 @ 10:57 by Angela Hill, RN) Smoking Status: Unknown if ever smoked second hand exposure: No alcohol intake: never substance use type: denies use current occupational status: unemployed Travel in the last 8 weeks: None household members: significant other housing: house 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 occupational exposures/hazards: Yes caffeine: Yes Review of Systems Review of Systems Review of systems:: pertinent systems reviewed and negative unless documented below Review of systems (narrative): Review of Systems: General: No recent weight changes, no fever, no sleep disturbances Respiratory: No cough, no shortness of air, no recurring pulmonary infections Cardiovascular/peripheral vascular: No chest pain, no palpitations, no edema, no shortness of breath Gastrointestinal: No new onset incontinence, normal bowel movements reported Genitourinary: No new onset incontinence Musculoskeletal: Low back pain, shoulder pain, bilateral upper extremity pain Psychiatric: [Normal mood/affect] Neurological: [Denies weakness in extremities], [denies balance issues] Meds Home Medications and Allergies Home Medications Medication Instructions Recorded Confirmed Type carbidopa 25 mg-levodopa 100 mg 1 tab PO DAILY PARKINSONS 04/19/19 05/11/23 History tablet omeprazole 20 mg capsule,delayed 20 mg PO DAILY Indigestion 04/19/19 05/11/23 History release fenofibrate 160 mg tablet 160 mg PO DAILY Cholesterol 09/21/20 05/11/23 History cyclobenzaprine 5 mg tablet 5 mg PO TID PRN muscle spasm 5 08/25/22 05/11/23 Rx days #15 tabs ergocalciferol (vitamin D2) 1,250 50,000 unit PO WEEKLY vitmain d 08/25/22 05/11/23 History mcg (50,000 unit) capsule (Vitamin deficnet D2) ibuprofen 800 mg tablet 800 mg PO TID PRN pain 7 days #20 08/25/22 05/11/23 Rx tabs gabapentin 300 mg capsule 300 mg PO TID 7 days #21 caps 05/03/23 05/11/23 Rx New Prescriptions to Start Prescriptions: Allergies Allergy/AdvReac Type Severity Reaction Status Date / Time No Known Allergies Allergy Verified 08/25/22 11:00 Objective Narrative: Physical Exam: General: Alert and oriented x3, no acute distress, pleasant and cooperative Lungs: Respirations even and unlabored, symmetrical chest expansion Eyes: PERRL Musculoskeletal: Flexion and extension of lumbar [spine] somewhat guarded secondary to pain, positive Kemps test Neurological: Speech clear, no gross sensory deficit Additional findings Additional findings: PROCEDURE INFORMATION: Exam: MR Lumbar Spine Without Contrast Exam date and time: 09/25/2020 1:52 PM Age: 54 years old Clinical indication: Low back pain and sciatica; Right; Patient HX: PT C/O chronic lbp and RT leg pain. PT denies injury or trauma and has no HX of lumbar surgery. Prior nr lumbar spine 03/14/2019; Additional info: Lbp with RT leg pain TECHNIQUE: Imaging protocol: Multiplanar magnetic resonance images of the lumbar spine without intravenous contrast. COMPARISON: MR LUMBAR SPINE WO/W CON 03/04/2019 9:35 AM FINDINGS: Vertebrae: Unremarkable. Spinal cord: Normal signal. No cord compression. There is loss of disc height and signal at the T11-T12 level without evidence of focal disc protrusion or extrusion. At the T12-L1 level is loss of disc height and signal with a mild diffuse disc bulge but no significant spinal or neural foraminal stenosis. Mild facet joint arthropathy. L1-L2: There is loss of disc height and signal with a mild disc bulge and moderate facet joint arthropathy articularly on the right. This causes mild to moderate right neural foraminal stenosis but no significant spinal or left neural foraminal stenosis is seen. . L2-L3: There is severe loss of disc height and signal with a mild diffuse disc bulge which extends into the neural foramen bilaterally.. In addition there is bilateral facet joint arthropathy and mild ligamentous hypertrophy combination of these changes causes mild to moderate left neural foraminal stenosis and moderate to severe right neural foraminal stenosis and minimal spinal stenosis. L3-L4: There is a minimal disc bulge seen in the left neural foramen with moderate bilateral facet joint arthropathy. Combination of these changes causes mild bilateral neural foraminal stenosis. L4-L5: There is loss of disc height and signal with a mild diffuse disc bulge. Bilateral severe facet joint arthropathy is seen with associated ligamentous hypertrophy. The combination of these changes causes severe bilateral neural foraminal stenosis and spinal stenosis. . L5-S1: There is loss of disc height and signal with a mild diffuse disc bulge and moderate bilateral facet joint arthropathy. Mild associated spinal and neural foraminal stenosis is seen. The left neural foramen is moderately stenosis secondary to a combination of a neural foraminal bulge and facet joint changes. . Soft tissues: Unremarkable. IMPRESSION: Multilevel degenerative changes as discussed above which are relatively stable when compared to the prior examination of 03/04/2019. Electronically signed by Cristhian Álvarez MD at Assessment and Plan *Assessment and plan (1) Degenerative joint disease (DJD) of lumbar spine: Status: Chronic Qualifiers: Spinal osteoarthritis complication: with radiculopathy Qualified Code(s): M47.26 - Other spondylosis with radiculopathy, lumbar region Category: Medical Code(s): M47.816 - Spondylosis without myelopathy or radiculopathy, lumbar region (2) Low back pain: Status: Acute Qualifiers: Back pain laterality: unspecified Chronicity: unspecified Sciatica presence: without sciatica Qualified Code(s): M54.5 - Low back pain Category: Medical Code(s): M54.5 - Low back pain (3) Lumbar facet arthropathy: Status: Chronic Category: Medical Code(s): M47.816 - Spondylosis without myelopathy or radiculopathy, lumbar region (4) Cervical radiculopathy: Status: Acute Category: Medical Code(s): M54.12 - Radiculopathy, cervical region (5) Shoulder pain: Status: Acute Qualifiers: Chronicity: chronic Laterality: bilateral Qualified Code(s): M25.511 - Pain in right shoulder; M25.512 - Pain in left shoulder; G89.29 - Other chronic pain Category: Medical Code(s): M25.519 - Pain in unspecified shoulder Plan Patient is experiencing significant pain in his low back with limited range of motion and a positive Kemps test. I have discussed with patient that he may benefit from a lumbar medial branch block. Patient's prior imaging did show multilevel facet arthropathy that was severe. Risk and benefits of this injection were explained to the patient via marine steward and he agrees with the plan of care. Patient is not on any blood thinners. I have also discussed with the patient in future once we improve his low back pain that I do believe he would benefit from a cervical epidural steroid injection. We will discuss this at future visits. Patient will be scheduled for a lumbar medial branch block bilaterally L4-L5 and L5-S1. Patient has been instructed to contact the clinic with any concerns before the next appointment. Dr. Arteaga has reviewed this note and agrees with this plan of care. This note was dictated using voice recognition software and make contain errors or omissions.
[2023-05-11 10:16] VITALS: BP 146/90; PULSE 61; RESP 18; O2SAT 97; BMI 36.6
== END ==
LOC: SC.PAIN 09:29
PROVIDERS: PCP Nurse Practitioner; Visit Provider Nurse Practitioner Family
DX: M47.26 Other spondylosis with radiculopathy, lumbar region (principal); M54.50 Low back pain, unspecified; M54.12 Radiculopathy, cervical region; M25.511 Pain in right shoulder; M25.512 Pain in left shoulder; G89.29 Other chronic pain
CPT/HCPCS: 99202; G0463

== ENCOUNTER 2023-05-30 08:09 | Day surgery (SDC) | payer OTHER, SELFPAY ==
[2023-05-30 08:15] VITALS: BP 152/96; PULSE 72; RESP 18; TEMP 36.6; O2SAT 99; BMI 34.2
[2023-05-30] MEDS: BUPIVACAINE 0.25% 10ML INJ 25 MG IJ (08:53)
[2023-05-30] MEDS: LIDOCAINE 1% 5ML PF VIAL 5 ML (08:53)
[2023-05-30] MEDS: methylPREDNISolone ACETATE 80MG/ML VIAL 80 MG (08:53)
[2023-05-30 08:55] VITALS: BP 151/92; PULSE 64; RESP 16; O2SAT 99
[2023-05-30 08:58] VITALS: BP 146/77; PULSE 58; RESP 18; O2SAT 96
[2023-05-30 09:01] VITALS: BP 146/77; PULSE 58; RESP 18; O2SAT 96
--- NOTE | 2023-05-30 09:03 | P.PCN_ITS ---
Procedure Date: 05/30/23 Time: 08:30 Anesthesiologist:: Brendon Bell CRNA Complications:: None Pre-procedure Diagnosis:: Degenerative disc lumbar spine multilevels. Lumbar radiculopathy. Lumbar spondylosis. Multilevel lumbar facet arthropathy. Post-procedure Diagnosis:: Same. Indications for Procedure:: Patient is a very pleasant 57-year-old male that comes our clinic today for medial branch block/facet injections bilaterally L4-5, L5-S1. Patient reports low back pain he describes as constant, dull, aching. Patient has difficulty with flexion extension, left and right rotation. He rates his pain 7/10. Procedure Details:: Informed consent was obtained and the risk and benefits of the procedure was explained to the patient. Patient was taken to the procedure room where noninvasive monitors were placed, including noninvasive blood pressure cuff as well as pulse oximeter. The area over the lumbar spine was cleansed using chlorhexidine as a cleansing solution. I anesthetized the skin and subcutaneous tissues with 1% Lidocaine. I placed 22-gauge spinal needles into the facet joint/ medial branches of L4-L5, and L5-S1] bilaterally. Needle placement was confirmed with fluoroscopy. After confirmation of needle placement, each site was injected with 1 mL of 1% lidocaine and 0.25 % Marcaine and 10 mg of Depo- Medrol. A total of 80 mg of depo medrol was used for bilateral medial branch blocks of L4-L5, and L5-S1] bilaterally. Patient tolerated the procedure without difficulty. There were no complications. Plan and Disposition:: Patient was discharged without incident.
== END 2023-05-30 08:55 | disposition home or self-care (01) ==
PROVIDERS: PCP Nurse Practitioner; Visit Provider Nurse Anesthetist, Certified Registered
DX: M47.896 Other spondylosis, lumbar region (principal); M51.16 Intervertebral disc disorders with radiculopathy, lumbar region
CPT/HCPCS: 64493; 64494; J1040

== ENCOUNTER → 2023-06-16 08:55 | Outpatient (POV) | payer OTHER, SELFPAY ==
--- NOTE | 2023-06-16 09:40 | EXP.PAIN.SOA ---
[facility] Pain Management SOAP Note Subjective:: Patient is a pleasant 57-year-old male who presents today for follow-up of his first lumbar medial branch block bilaterally L4-L5 and L5-S1 on 05/30/2019. This visit is occurring using the supervisor boarding on the [employer] iPad tablet. Patient consents to using this a device and this appointment. We are currently treating the patient for degenerative disc disease of lumbar spine with lumbar radiculopathy symptoms, lumbar facet arthropathy, Low back pain, shoulder pain, bilateral knee pain. Today he rates his pain a 3 out of 10. Patient denies any new trauma or injury. He does state that he has had at least 90% improvement following this injection and feels like it is still helping. He states that it is completely taken away his back and knee pain. He states he has been able to increase his activity with decreased pain symptoms and has overall improved function. He is prescribed gabapentin 300 mg 3 times daily from an outside provider. His Umberto has been reviewed and is appropriate. Review of Systems: General: No recent weight changes, no fever, no sleep disturbances Respiratory: No cough, no shortness of air, no recurring pulmonary infections Cardiovascular/peripheral vascular: No chest pain, no palpitations, no edema, no shortness of breath Gastrointestinal: No new onset incontinence, normal bowel movements reported Genitourinary: No new onset incontinence Musculoskeletal: Low back pain Psychiatric: [Normal mood/affect] Neurological: [Denies weakness in extremities], [denies balance issues] Objective:: Physical Exam: General: Alert and oriented x3, no acute distress, pleasant and cooperative Lungs: Respirations even and unlabored, symmetrical chest expansion Eyes: PERRL Musculoskeletal: Flexion and extension of lumbar [spine] somewhat guarded secondary to pain, [antalgic gait noted] Neurological: Speech clear, no gross sensory deficit Assessment:: Degenerative disc disease of lumbar spine with lumbar radiculopathy symptoms, lumbar facet arthropathy, low back pain, shoulder pain, bilateral knee pain Plan:: Patient has had significant improvement following his lumbar medial branch block and does not require any additional injection therapy at this time. Patient will return to clinic in 1 month for reevaluation of symptoms and plan of care. Patient has been instructed to contact the clinic with any concerns before the next appointment. Dr. Arteaga has reviewed this note and agrees with this plan of care. This note was dictated using voice recognition software and make contain errors or omissions. [facility] Disclaimer: The information contained in this section may have been updated after the patient was seen, as this information can be updated by other users. 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
[2023-06-16 12:09] VITALS: BP 133/99; PULSE 99; RESP 18; O2SAT 99; BMI 36.3
== END ==
LOC: SC.PAIN 08:56
PROVIDERS: PCP Nurse Practitioner; Visit Provider Nurse Practitioner Family
DX: M51.16 Intervertebral disc disorders with radiculopathy, lumbar region (principal); M47.26 Other spondylosis with radiculopathy, lumbar region; M25.519 Pain in unspecified shoulder; M25.561 Pain in right knee; M25.562 Pain in left knee
CPT/HCPCS: 99212; G0463

== ENCOUNTER 2023-07-13 08:52 | Outpatient (POV) | payer OTHER, SELFPAY ==
[2023-07-13 09:30] VITALS: BP 122/78; PULSE 88; RESP 18; O2SAT 99; BMI 36.3
--- NOTE | 2023-07-13 10:06 | A.OFFVIS_ITS ---
[facility] Pain Management SOAP Note Subjective:: Patient today presents for 1 month follow-up. He is a pleasant 57-year-old male. Today he rates his pain a 5 out of 10. He does state that his pain is starting to increase there at his low back. He denies any new trauma or injury. Patient does state it is an aching, throbbing sensation that is worse with certain movements such as bending, twisting or lifting. He does state the pain interferes with his ability to perform activities of daily living such as cooking and cleaning or even simple ambulation. Patient does state that his shoulders and knees still seem to be doing well. Patient did previously have his first lumbar medial branch block bilaterally L4-L5 and L5-S1 in May that did provide upwards of 90% relief. He is interested in repeating this injection. He is prescribed gabapentin from an outside provider. His Umberto has been reviewed and is appropriate. Review of Systems: General: No recent weight changes, no fever, no sleep disturbances Respiratory: No cough, no shortness of air, no recurring pulmonary infections Cardiovascular/peripheral vascular: No chest pain, no palpitations, no edema, no shortness of breath Gastrointestinal: No new onset incontinence, normal bowel movements reported Genitourinary: No new onset incontinence Musculoskeletal: Low back pain Psychiatric: [Normal mood/affect] Neurological: [Denies weakness in extremities], [denies balance issues] Objective:: Physical Exam: General: Alert and oriented x3, no acute distress, pleasant and cooperative Lungs: Respirations even and unlabored, symmetrical chest expansion Eyes: PERRL Musculoskeletal: Flexion and extension of lumbar [spine] somewhat guarded secondary to pain, [antalgic gait noted] positive Kemps test Neurological: Speech clear, no gross sensory deficit Assessment:: Degenerative disc disease of lumbar spine with lumbar radiculopathy symptoms, lumbar facet arthropathy, low back pain, shoulder pain, bilateral knee pain Plan:: Patient is starting to experience more pain in his low back with limited range of motion and a positive Kemps test. I have discussed with the patient that he may benefit from a repeat lumbar medial branch block. Risk and benefits were discussed with the patient and he would like to proceed forward with this plan of care. Patient did previously have upwards of 90% relief with his first i njection. I have discussed with the patient if he ends up getting significant relief with the second injection that we will plan to do a lumbar RFA at a later date. Patient has tried and failed conservative therapy. We will schedule the patient for his second lumbar medial branch block bilaterally L4-L5 and L5-S1 Under fluoroscopy. Patient has been instructed to contact the clinic with any concerns before the next appointment. Dr. Artaega has reviewed this note and agrees with this plan of care. This note was dictated using voice recognition software and make contain errors or omissions. [facility] Disclaimer: The information contained in this section may have been updated after the ami mitchell was seen, as this information can be updated by other users. 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
== END 2023-07-13 23:59 ==
LOC: SC.PAIN 08:53
PROVIDERS: PCP Nurse Practitioner; Visit Provider Nurse Practitioner Family
DX: M51.16 Intervertebral disc disorders with radiculopathy, lumbar region (principal); M47.26 Other spondylosis with radiculopathy, lumbar region; M25.519 Pain in unspecified shoulder; M25.561 Pain in right knee; M25.562 Pain in left knee
CPT/HCPCS: 99212; G0463

== ENCOUNTER 2023-08-04 13:30 | Day surgery (SDC) | payer OTHER, SELFPAY ==
[2023-08-04 13:50] VITALS: BP 158/95; PULSE 75; RESP 18; TEMP 36.7; O2SAT 100; BMI 35.2
[2023-08-04 14:02] VITALS: BP 117/42; PULSE 67; RESP 18; O2SAT 97
[2023-08-04] MEDS: BUPIVACAINE 0.25% 10ML INJ 25 MG IJ (14:03)
[2023-08-04] MEDS: methylPREDNISolone ACETATE 80MG/ML VIAL 80 MG (14:03)
[2023-08-04] MEDS: LIDOCAINE 1% 5ML PF VIAL 5 ML (14:03)
--- NOTE | 2023-08-04 14:05 | P.PCN_ITS ---
Procedure Date: 08/04/23 Time: 14:00 Anesthesiologist:: Brendon Bell CRNA Complications:: None Pre-procedure Diagnosis:: Degenerative disc lumbar spine multilevels. Lumbar radiculopathy. Lumbar spondylosis. Multilevel lumbar facet arthropathy Post-procedure Diagnosis:: Same. Indications for Procedure:: Patient is a very pleasant 57-year-old male comes our clinic today for bilateral L4-5, L5-S1 medial branch block/facet injection. Patient reports low back pain he describes as constant, dull, aching. He reports having difficulty with flexion, extension, left and right rotation. He rates his pain 7/10. Procedure Details:: Informed consent was obtained and the risk and benefits of the procedure was explained to the patient. Patient was taken to the procedure room where noninvasive monitors were placed, including noninvasive blood pressure cuff as well as pulse oximeter. The area over the lumbar spine was cleansed using chlorhexidine as a cleansing solution. I anesthetized the skin and subcutaneous tissues with 1% Lidocaine. I placed 22-gauge spinal needles into the facet joint/ medial branches of [L3-L4, L4-L5, and L5-S1] bilaterally. Needle placement was confirmed with fluoroscopy. After confirmation of needle placemen t, each site was injected with 1 mL of 1% lidocaine and 0.25 % Marcaine and 10 mg of Depo-Medrol. A total of 80 mg of depo medrol was used for bilateral medial branch blocks of [L3-L4, L4-L5, and L5-S1] bilaterally. Patient tolerated the procedure without difficulty. There were no complications. Plan and Disposition:: Patient was discharged without incident.
[2023-08-04 14:06] VITALS: BP 148/88; PULSE 69; RESP 18; O2SAT 100
== END 2023-08-04 14:06 | disposition home or self-care (01) ==
PROVIDERS: PCP Nurse Practitioner; Visit Provider Nurse Anesthetist, Certified Registered
DX: M47.896 Other spondylosis, lumbar region (principal); M51.16 Intervertebral disc disorders with radiculopathy, lumbar region
CPT/HCPCS: 64493; 64494; J1010

== ENCOUNTER 2023-08-21 10:40 | Outpatient (POV) | payer OTHER, SELFPAY ==
[2023-08-21 10:57] VITALS: BP 143/72; PULSE 60; RESP 18; TEMP 36.7; O2SAT 98; BMI 46.8
--- NOTE | 2023-08-21 11:16 | EXP.PAIN.SOA ---
[facility] Pain Management SOAP Note Subjective:: Patient is a pleasant 57-year-old male who presents today for follow-up of his second lumbar medial branch block bilaterally L4-L5 and L5-S1 on 08/04/2023. Today he rates his pain a 4 out of 10. Patient states he has had at least 80% relief following this injection and feels like it still helping. Patient does state that he has some muscle soreness and occasional spasm. Patient denies any new injury or trauma. His Umberto has been reviewed and is appropriate. Review of Systems: General: No recent weight changes, no fever, no sleep disturbances Respiratory: No cough, no shortness of air, no recurring pulmonary infections Cardiovascular/peripheral vascular: No chest pain, no palpitations, no edema, no shortness of breath Gastrointestinal: No new onset incontinence, normal bowel movements reported Genitourinary: No new onset incontinence Musculoskeletal: Low back pain Psychiatric: [Normal mood/affect] Neurological: [Denies weakness in extremities], [denies balance issues] Objective:: Physical Exam: General: Alert and oriented x3, no acute distress, pleasant and cooperative Lungs: Respirations even and unlabored, symmetrical chest expansion Eyes: PERRL Musculoskeletal: Flexion and extension of lumbar [spine] somewhat guarded secondary to pain, [antalgic gait noted] Neurological: Speech clear, no gross sensory deficit Assessment:: Degenerative disc disease of lumbar spine multilevel with lumbar facet arthropathy, lumbar spondylosis Plan:: Patient has had significant improvement following his lumbar medial branch block and does not require any additional injection therapy. Patient will return to clinic in 1 month for reevaluation of symptoms and plan of care. I will send in a 2-week dose of methocarbamol 500 mg twice daily as needed to see if this helps with his muscle spasms. Patient has been instructed to contact the clinic with any concerns before the next appointment. Dr. Arteaga has reviewed this note and agrees with this plan of care. This note was dictated using voice recognition software and make contain errors or omissions. [facility] Disclaimer: The information contained in this section may have been updated after the patient was seen, as this information can be updated by other users. 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
== END 2023-08-21 23:59 | disposition home or self-care (01) ==
PROVIDERS: PCP Nurse Practitioner; Visit Provider Nurse Practitioner Family
DX: M51.36 Other intervertebral disc degeneration, lumbar region (principal); M47.816 Spondylosis without myelopathy or radiculopathy, lumbar region
CPT/HCPCS: 99212; G0463

== ENCOUNTER 2023-09-20 09:12 | Outpatient (POV) | payer OTHER, SELFPAY ==
[2023-09-20 09:28] VITALS: BP 128/82; PULSE 61; RESP 18; O2SAT 95; BMI 36.6
--- NOTE | 2023-09-20 09:44 | A.OFFVIS_ITS ---
[facility] Pain Management SOAP Note Subjective:: Patient is a pleasant 57-year-old male who presents today for follow-up. Today he rates his pain a 4 out of 10. Patient denies any new trauma or injury. He does state that he still has pain in 1 area within his back and denies any radiating symptoms into his lower extremities. He does still feel like overall that his second lumbar medial branch block is still helping. This was done on August 03. Patient did give overall 80% relief following this injection. He was given methocarbamol 500 mg twice a day with a 14-day supply at his last visit. Patient states that this did help some however he still has this medication that he only takes it as needed his Umberto has been reviewed and is appropriate. Review of Systems: General: No recent weight changes, no fever, no sleep disturbances Respiratory: No cough, no shortness of air, no recurring pulmonary infections Cardiovascular/peripheral vascular: No chest pain, no palpitations, no edema, no shortness of breath Gastrointestinal: No new onset incontinence, normal bowel movements reported Genitourinary: No new onset incontinence Musculoskeletal: Low back pain Psychiatric: [Normal mood/affect] Neurological: [Denies weakness in extremities], [denies balance issues] Objective:: Physical Exam: General: Alert and oriented x3, no acute distress, pleasant and cooperative Lungs: Respirations even and unlabored, symmetrical chest expansion Eyes: PERRL Musculoskeletal: Flexion and extension of lumbar [spine] somewhat guarded secondary to pain, [antalgic gait noted] Neurological: Speech clear, no gross sensory deficit Assessment:: Degenerative disc disease of lumbar spine with lumbar facet arthropathy, lumbar spondylosis Plan:: Patient is still getting relief following his lumbar medial branch block. I have discussed with patient in future he may get even better improvement with the lumbar RFA. Today he is still stating he is continue to get moderate relief with the last block. I will order the patient a compounded cream as well as send in a prescription for lidocaine 5% patches. Patient will return to clinic in 1 month for reevaluation of symptoms and plan of care. Patient has been instructed to contact the clinic with any concerns before the next appointment. Dr. Arteaga has reviewed this note and agrees with this plan of care. This note was dictated using voice recognition software and make contain errors or omissions. [facility] Disclaimer: The information contained in this section may have been updated after the patient was seen, as this information can be updated by other users. 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
== END 2023-09-20 23:59 | disposition home or self-care (01) ==
PROVIDERS: PCP Nurse Practitioner; Visit Provider Nurse Practitioner Family
DX: M51.16 Intervertebral disc disorders with radiculopathy, lumbar region (principal); M47.896 Other spondylosis, lumbar region
CPT/HCPCS: 99212; G0463